=== PATIENT | male | born 1965 | race Caucasian/White ===

== ENCOUNTER 2024-01-24 10:32 | Inpatient (IN) | payer BC, SELFPAY ==
[2024-01-24] VITALS (18 sets, daily range): BP systolic 103–180; BP diastolic 74–112; BMI 33.0
[2024-01-24] MEDS: LOW STRENGTH ASPIRIN 324 MG PO (09:01)
[2024-01-24] MEDS: NITROSTAT (SUBLINGUAL) 0.400000000000000022 MG SL (09:01)
[2024-01-24] MEDS: BRILINTA 180 MG PO (09:03)
--- NOTE | 2024-01-24 09:03 | ED TECH ---
A STEMI ALERT was called #[id number] # Per @09:03 AM.
--- NOTE | 2024-01-24 09:04 | ED.GENMED ---
History of Present Illness
General
Chief Complaint: Chest Pain
Source: patient
Exam Limitations: none
Time Seen by Provider: 01/24/24 08:33
Nursing documentation reviewed up to this point in time: agreed with
Travel History
Have you had any contact with someone who has COVID-19?: No
Do you have any symptoms of coronavirus? Fever > 100 degrees, chills, cough, shortness of breath, sore throat, loss of taste or smell, muscle aches, or headache?: No
History of Present Illness
History of Present Illness:
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 Patient reports that he has had intermittent symptoms for the past week or so. He says he has been
having episodes of pain in the interscapular region that radiate towards the right shoulder; he says that he thought symptoms could be musculoskeletal and so he has been taking 3 Motrin to treat the symptoms and he says that they go away after about
an hour or so. Today he woke up with pain in the same area at this time radiating towards the jaw and the left shoulder. He took Motrin but symptoms did not go away (although they did improve slightly) and for this reason came to the emergency
room for assessment. He denies any exertional component to his symptoms. He denies any shortness of breath but did have some palpitations with the symptoms. He says some mild diaphoresis. No nausea or vomiting. He says he has seen cardiology in
the past Dr. Trimble but has no known history of heart issues. He is a former smoker quit 6 years ago.
Past History
Past History
ED Past Medical History: None
ED Past Surgical History: Cholecystectomy (Bilateral knee implants), Orthopedic, Tonsilectomy and Other (Right upper lobectomy for cancer 2016, skin cancer removal left posterior shoulder 2018)
Social History
Tobacco: Former smoker ([id number] yrs)
Personal:
Living: with family
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
Review of Systems
Review of Systems
All Other Systems: ROS reviewed and negative except as documented in HPI and ROS
Constitutional: Denies fever or chills
EENT: Denies sore throat or runny nose
Respiratory: Denies cough or trouble breathing
Cardiac: Reports chest pain and diaphoresis; Denies palpitations or syncope
ABD/GI: Denies abdominal pain, nausea or vomiting
: Denies flank pain
Musculoskeletal: Reports back pain; Denies neck pain
Neurological: Denies dizzy, headache, weakness or numbness
Phy Exam
Physical Exam
Physical Exam:
General: Awake, alert, oriented x3; no acute distress
Head: Normocephalic, atraumatic
Eyes: Conjunctiva normal, sclera anicteric
Throat: Airway intact, handling secretions
Neck: Trachea midline, supple without meningismus
Lungs: Clear to auscultation bilaterally, no wheezing, rales, rhonchi
Heart: Regular rate and rhythm, no murmurs, gallops, or rubs
Abd: Soft, non distended, nontender
Neuro: Cranial nerves grossly intact, speech fluid
Skin: no rash
Extremities: No edema in extremities, equal pulses in all extremities
Scores
Heart Failure Risk
Heart Failure Risk Score: Not Applicable
Heart Score for Chest Pain Patients
STEMI patient?: Yes
Withdrawal Assessment of Alcohol
Withdrawal Assessment Completed?: Not applicable
Course
Orders/Labs/Results
Orders:
Orders
01/24/24 08:29
Electrocardiogram (*1) Urgent
Reason for Study: Chest Pain
EKG- Treatment ONCE
01/24/24 08:36
Electrocardiogram (*1) Urgent
Reason for Study: Chest Pain
EKG- Treatment ONCE
01/24/24 08:52
Aspirin Chewable [Low Strength Aspirin] 324 mg PO NOW STA
Nitroglycerin 100 mg/250 ml [Nitroglycerin Premix] 100 mg in 250 ml IV NOW
Initial dose in mcg/min, then titrate:: 100
Titrate to keep:: Other
Titrate to keep other:: SBP less than 140 mmHg
Titrate by mcg/min:: 20 mcg/min
Frequency of titrations (minutes):: every 1 minute (after initial bolus)
Additional Titration Instructions:: Bolus 400 mcg/min x 2 min. Decrease to 100 mcg/min & titrate
Maximum dose in mcg/min:: 200
Begin to taper infusion when:: Remained at goal for 2hrs
Taper by mcg/min:: 5 mcg/min
Frequency of taper (minutes) if patient maintains goal:: 30
Taper to off?: Yes
If infusion off & no longer maintaining goal:: Contact Provider
Nitroglycerin Sublingual [Nitrostat (Sublingual)] 0.4 mg SL NOW STA
01/24/24 08:55
Consult Cardiology [CARDIOLOGY CONSULT] Urgent
Consulting Provider: Nakia Hardwick
Was physician already notified: Yes
01/24/24 08:57
Complete Blood Count/With Diff Urgent
Comprehensive Metabolic Panel Urgent
D-Dimer Urgent
Lipase Urgent
Magnesium Urgent
PTT Urgent
Comment: Obtain baseline before beginning heparin infusion if not already collected
Troponin I Urgent
01/24/24 09:02
Heparin 5,000 units IV NOW STA
Nursing to Place Non Medication Order As Directed
Physician Order: PTT 6 hours after initial start of Heparin infusion
Above order entered?: Yes
01/24/24 09:03
Ticagrelor [Brilinta] 180 mg PO ONCE ONE
01/24/24 09:17
Heparin 1000 Units/500 ml [Heparin] 1,000 units in 500 ml .ROUTE .STK-MED
Heparin Sodium,Porcine/Ns/Pf [Heparin 2000 Units/1000 ml] 2,000 unit in 1,000 ml .ROUTE .STK-MED
Lidocaine HCl/Pf [Xylocaine-Mpf 1% Vial] 50 mg .ROUTE .STK-MED ONE
Nitroglycerin [Tridil] 1,500 mcg .ROUTE .STK-MED ONE
Verapamil Injectable [Isoptin/Verapamil Injection] 5 mg .ROUTE .STK-MED ONE
01/24/24 09:20
Ticagrelor [Brilinta] 180 mg .ROUTE .STK-MED ONE
01/24/24 09:21
Fentanyl Citrate/Pf [Sublimaze] 100 mcg .ROUTE .STK-MED ONE
Heparin 10,000 units .ROUTE .STK-MED ONE
Midazolam HCl [Versed] 2 mg .ROUTE .STK-MED ONE
01/24/24 09:46
Heparin 1000 Units/500 ml [Heparin] 1,000 units in 500 ml .ROUTE .STK-MED
01/24/24 Lunch
Cholesterol Lowering
At Your Request: Full Participation
Cholesterol Lowering: Sodium, 2 Gram
[address] Request to [address] See Dose Instructions IV DIRECTED
01/24/24 10:05
Phenylephrine HCl/0.9% NaCl [Song-Synephrine] 1,000 mcg .ROUTE .STK-MED ONE
01/24/24 10:24
Admit Patient As Directed
Co-Sign Provider:
Level of Care: Inpatient admission
Assign to:: IVU
Physician / Group: dca
Diagnosis: STEMI
Reason for Hospitalization: STEMI
Expected length of stay greater than two midnights?: Yes
ELOS- Estimated Length of Stay in days: 2
I certify the patient meets the requirements for IP care: Yes
Electrocardiogram (*1) Urgent
Reason for Study: Other
Other Reason for Exam: s/p intervention
Comment: dca
Code Status As Directed
Resuscitation Status: Full Code
CARDIAC REHAB CONSULT Routine
Co-Sign Provider:
Type of Cardiac Rehab Referral: Outpatient
Diagnosis: STEMI
Date of Diagnosis/Surgery: 01/24/24
Referring Provider: Nakia Hardwick
Acetaminophen [Tylenol] 650 mg PO Q4HPRN PRN
Activity As Directed
Activity Level: Out of Bed- Chair
Comment: bed/chair rest for 2 hours then out of bed ad yoly
Ichthyologist Procedure As Directed
Cardiac Cath Procedure: percutaneous coronary intervention
Intake/ Output As Directed
Frequency: Per unit guidelines
Notify MD As Directed
Notify physician if: immediately for chest pain or bleeding from access site(s)
Radial Artery Hemostasis Method As Directed
Instructions:: 3 mL out at 2 hour posts placement of band
3 mL out at 2 1/2 hours post placement of band
3 mL out at 3 hours post placement of band
Off at 3 1/2 hours post placement of band
If any oozing or hemotoma occurs:: re-inflate band and call provider
Site Checks As Directed
Check access site for bleeding/hematoma: Yes
Comment: on arrival, Q15min x4, Q30min x2, Q1 hr x2, Q2 hr x2, Q4 hr or per
protocol
Vascular Checks As Directed
Location: distal to access site - pulse check
Frequency: Other
Comment: on arrival, Q15min x4, Q30min x2, Q1 hr x2, Q2 hr x2, Q4 hr or per protocol
Vital Signs As Directed
Frequency: Other
Additional Instructions:: on arrival, Q15min x4, Q30min x2, Q1 hr x2, Q2 hr x2, then Q4 hr or per unit
protocol
01/24/24 10:25
DX Deep Vein Thrombosis Video Routine
01/24/24 10:27
Case Management Consult ONCE
Case Management Consult: Discharge Planning
Comment: cost arabellailinta
01/24/24 10:30
0.9% Sodium Chloride 1000 ml [Nss] 1,000 ml IV PER PROTOCOL
Infusion rate in mL/kg/hr:: 1.5
Infusion rate in mL/hr:: 152
Duration of infusion (hours):: 5
01/24/24 16:00
Troponin I Q8H
01/24/24 18:00
Atorvastatin [Lipitor] 80 mg PO QPM
Enoxaparin Sodium [Lovenox] 40 mg SC QPM
01/24/24 20:00
Ticagrelor [Brilinta] 90 mg PO BID
01/25/24 00:00
Troponin I Q8H
01/25/24 06:00
Echo 2D MMode Color/Doppler Routine
Reason for Study: STEMI
Comment: dca
Electrocardiogram (*1) IN AM
Reason for Study: Other
Other Reason for Exam: s/p intervention
Comment: dca
Basic Metabolic Panel IN AM
Cardiovascular Evaluation IN AM
Complete Blood Count/No Diff IN AM
01/25/24 08:00
Troponin I Q8H
Aspirin Chewable [Low Strength Aspirin] 81 mg PO DAILY
Metoprolol Xl [Toprol Xl] 25 mg PO DAILY
Pantoprazole [Protonix] 40 mg PO DAILY
01/26/24 06:00
Basic Metabolic Panel IN AM
Complete Blood Count/No Diff IN AM
01/27/24 06:00
Basic Metabolic Panel IN AM
Complete Blood Count/No Diff IN AM
Abnormal Lab Results
01/24/24 01/24/24 01/24/24
08:57 09:27 09:34
Abs Immat Gran (auto) 0.1 H 10^3/uL
(0-0.05)
Immature Gran % 0.6 H %
(0-0.5)
D-Dimer 0.58 H ug/mlFEU
(0.00-0.50)
Glucose 120 H mg/dl
(70-99)
Alkaline Phosphatase 141 H U/L
(38-126)
Troponin I 0.260 H* ng/ml
POC ACT Low Range 231 H Seconds 279 H Seconds
(116-155) (116-155)
01/24/24
10:00
Abs Immat Gran (auto)
Immature Gran %
D-Dimer
Glucose
Alkaline Phosphatase
Troponin I
POC ACT Low Range 265 H Seconds
(116-155)
01/24/24 08:57
01/24/24 08:57
Vital Signs
Initial and Last Documented VS:
Initial Vital Signs
Temp Pulse Resp BP Pulse Ox
36.4 C 78 18 180/112 99
01/24/24 08:25 01/24/24 08:25 01/24/24 08:25 01/24/24 08:25 01/24/24 08:25
Last Documented Vital Signs
Temp Pulse Resp BP Pulse Ox
36.6 C 70 18 103/80 99
01/24/24 10:45 01/24/24 11:30 01/24/24 10:45 01/24/24 11:30 01/24/24 11:30
MDM/Problems Addressed
Differential Diagnosis Includes:
ACS, PE, dissection, pneumothorax
MDM/Problems Addressed:
58-year-old male presents for evaluation of intermittent and nonexertional chest pain over the past few days more consistent and severe this morning radiating to the jaw on the left shoulder. The rash was hypertensive but with otherwise normal
vitals. Exam as above. His initial EKG was concerning for inferior STEMI but significant baseline wander in the inferior leads and so repeat EKG was done and again concerning for STEMI. Initially discussed with interventional cardiology who
initially recommended no STEMI alert but after further review of case and EKG and bedside evaluation, STEMI alert activated will take patient to the Ichthyologist. Will treat with aspirin, nitroglycerin, Brilinta, heparin bolus. IV placed usual labs
sent off.
Chronic conditions affecting care:
Former smoker�increases cardiac risk
Acute Exacerbation and/or Progression of Chronic Illness:
Acutely hypertensive treated with nitroglycerin
Acute Exacerbation and/or Progression of Chronic Illness: HTN
*Pulse Oximetry
Patient hypoxic: no
*EKG
Interpreted by ED Provider?: Yes
Heart Rate: 75
Rate: normal
Rhythm: sinus
Friendly: left axis deviation
Interval: normal interval
QRS Pattern: normal QRS
Ischemia: ST elevation (Inferior leads, new)
*Critical Care Note
Total Time (30-74mins, 75-104mins- exclusive of procedures): 30
comment:
Critical care statement: A total of 30 minutes of critical care time was provided for this patient. This includes management of unstable vital signs, evaluation of the patient at bedside, frequent reassessment, discussion with
consultants/hospitalist, and review of pertinent medical records. This time was separate from time utilized to perform any aforementioned documented procedures
Data Reviewed
Review of Other/Old Records Reveals: Labs, Records and Other (EKGs)
Source: patient and records
Patient Management
Discussion with other providers: Restaurant Cook (Discussed with lock expert)
Escalation/DeEscalation of care consider admission/obs:
Admission indicated�Ichthyologist
ED Attending Note
-
Portions of this chart may have been created with voice recognition software.� Occasional wrong word or��sound alike� substitutions may have occurred due to the inherent limitations of voice recognition software.
Discharge Plan
Departure
Patient Disposition: FREIGHT AGENT
Date of Disposition: 01/24/24
Time of Disposition: 09:03
Admit to doctor: Ronen
Presentation/result/management discussed w/ accepting MD/DO: cardiology
Discharge Problem:
ST elevation (STEMI) myocardial infarction
Interventions
Interventions:
*Risk Screen - Suicide Last Done: 01/24/24 11:59
*General Assessment Last Done: 01/24/24 08:28
*Neglect/Abuse Screening Last Done: 01/24/24 08:28
*Nursing Disposition Last Done: 01/24/24 09:13
Discharge Date and Time
Discharge Date/Time: 01/24/24 09:13
[2024-01-24] MEDS: HEPARIN 5000 UNITS IV (09:05)
--- NOTE | 2024-01-24 09:10 | EDRN ---
Chest pain post NTG was1/10.
[2024-01-24 09:11] LABS: % Basophils 0.8 % (0-2); % Eosinophils 1.8 % (0-6); % Immature Granulocytes 0.6 % (0-0.5); % Lymphocytes 38.2 % (20.5-51.1); % Monocytes 6.4 % (1.7-9.3); % Neutrophils 52.2 % (42.2-75.2); Absolute Basophils 0.1 10^3/uL (0-0.2); Absolute Eosinophils 0.1 10^3/uL (0-0.7); Absolute Immature Granulocytes 0.1 10^3/uL (0-0.05); Absolute Monocytes 0.5 10^3/uL (0.1-0.6); Absolute Neutrophils 4.1 10^3/uL (1.4-6.5); Hematocrit 43.7 % (39.0-52.0); Hemoglobin 15.1 g/dL (13.0-18.0); Mean Corp Hgb Conc. 34.6 g/dL (33.0-37.0); Mean Corpuscular Hgb 29.7 pg (27.0-31.0); Mean Corpuscular Volume 85.9 fL (80.0-94.0); Mean Platelet Volume 8.8 fL (7.4-10.4); Nucleated Red Blood Cells % 0 % (-); Platelet Count 334 10^3/uL (130-400); Red Blood Cell Count 5.09 10^6/uL (4.70-6.10); Red Cell Dist. Width 12.8 % (11.5-14.5); White Blood Cell Count 7.9 10^3/uL (4.8-10.8)
--- NOTE | 2024-01-24 09:13 | EDRN ---
Pt to oil laboratory analyst w/ Jennifer FARIAS and Jessenia FARIAS and Museum Curator search engine optimization specialist.
[2024-01-24 09:19] LABS: APTT 28.2 Sec (23.4-35.0)
[2024-01-24 09:21] LABS: ALT (SGPT) 28 U/L (0-50); AST (SGOT) 24 U/L (17-59); Albumin 4.6 g/dl (3.5-5.0); Alkaline Phosphatase 141 U/L (38-126); Blood Urea Nitrogen 13 mg/dl (9-20); Calcium 9.5 mg/dl (8.4-10.2); Carbon Dioxide 27 mmol/L (22-30); Chloride 105 mmol/L (98-107); Estimated Creatinine Clearance 93 ml/min; Glucose 120 mg/dl (70-99); Lipase 83 U/L (23-300); Magnesium 2.3 mg/dl (1.6-2.3); Sodium 138 mmol/L (135-145); Total Bilirubin 0.6 mg/dl (0.2-1.3); Total Protein 7.4 g/dl (6.3-8.2); eGFR > 60.00
[2024-01-24 09:22] LABS: D-Dimer 0.58 ug/mlFEU (0.00-0.50)
[2024-01-24 09:32] LABS: ACT-LR - POC 231 Seconds (116-155)
[2024-01-24 09:40] LABS: ACT-LR - POC 279 Seconds (116-155)
[2024-01-24 10:08] LABS: ACT-LR - POC 265 Seconds (116-155)
--- NOTE | 2024-01-24 10:13 | HPS.HSE ---
Family Physician
-
Family Physician: Jakob Bedoya MD
Chief Complaint
-
Chest pain, Inferior STEMI
History of Present Illness
58-year-old male with past medical history lung cancer RUL partial lobectomy, diverticulosis who has been having intermittent chest pain since 01/11 which radiated to R shoulder and has been treating with Motrin. He was awoken at 3am with worsening
chest pain radiating to jaw and left shoulder and presented to ER. EKG with ST elevations inferiorly. He was given heparin, ASA, Brilinta and brought urgently to chemical lab supervisor. He is a former smoker quit 6 years ago.
Medical History
Past Medical History
Past Medical History: Reports Cancer (Lung and Skin)
Past Surgical History: Reports Orthopedic (TKR b/l) and Other (RUL partial lobectomy 2015, carcenoma removed from back 2018)
Social History
Tobacco: Former Smoker (1ppd x 30yrs)
Employment: Employed
Family History
Family History: Cancer
Allergies / Home Medications
Allergies reflects when Allergies were last updated in [employer].
Home Medications with original date entered in [employer]
Allergy/Medication List:
Allergies
Allergy/AdvReac Type Severity Reaction Status Date / Time
erythromycin base Allergy vomiting Verified 01/24/24 08:25
latex Allergy Unknown Verified 01/24/24 09:28
Medication Instructions Recorded Confirmed Type
omeprazole 20 mg capsule,delayed 20 mg PO DAILY 01/24/24 01/24/24 History
release
Review of Systems
-
Cardiac: Reports Chest Pain (01/20 chest pain)
Physical Exam
Vital Signs
Vital Signs
Temp Pulse Resp BP Pulse Ox
97.5 F 85 16 138/96 97
01/24/24 08:25 01/24/24 09:07 01/24/24 09:07 01/24/24 09:07 01/24/24 09:07
Physical Exam
General: Pain (deferred as being prepped and draped on chemical lab supervisor table for urgent procedure)
Laboratory Results
-
01/24/24 08:57
01/24/24 08:57
Laboratory Results
APTT 28.2 Sec (23.4-35.0) 01/24/24 08:57
Total Bilirubin 0.6 mg/dl (0.2-1.3) 01/24/24 08:57
AST 24 U/L (17-59) 01/24/24 08:57
ALT 28 U/L (0-50) 01/24/24 08:57
Alkaline Phosphatase 141 U/L (38-126) H 01/24/24 08:57
Troponin I 0.260 ng/ml H* 01/24/24 08:57
Lipase 83 U/L (23-300) 01/24/24 08:57
Data Reviewed
-
Medical Tests (Nuc Med, Echo, EKG etc): Report Reviewed by me
Impression/Plan
-
IMPRESSION:
late presentation inferior STEMI
Lung cancer post RUL partial lobectomy 2015
skin cancer excision 2017
GERD
Diverticulosis
Arthritis prior b/l TKR
former smoker
PLAN:
Admit IVU post cath
serial troponin to peak
Echo today
DAPT ASA/Brilinta
initiate low dose BB
PPI for now, may not require as GERD could be from CAD
cardiac rehab c/s
f/u DCA at d/c
continue to monitor on tele 48 hours
[2024-01-24] MEDS: NSS 1000 IV (11:05)
--- NOTE | 2024-01-24 12:35 | PTCARENOTE ---
Assumed care of pt upon transfer from [facility] post Stenting to RCA. Pt arrives awake and alert, Ox3. VSS, CM shows NSR 70's, POX 99%. Pt c/o pain 2/10 through chest since he arrived, has not increased, Dr. Hardwick aware. Right radial band intact with
normal CMS. at bedside updated.
--- NOTE | 2024-01-24 13:18 | CM ---
Addendum entered by Leslie Banda RN 01/24/24 14:00:
Patient is agreeable to the cost
Original Note:
Pricing on Brilinta 90 mg BID through the patient's [employer] [facility] is $285.61 for 30 days. The patient has a $2500 deductible. The patient does qualify for the copay card, so he will be responsible for $85.61 until he meets his deductible then it will
$5 a month. I will review pricing with the patient.
--- NOTE | 2024-01-24 14:01 | CM ---
Chart reviewed. Patient is independent of ADLS, lives with his in a 2 [address], 2 RUIZ, 0 DME. Plan is for the patient to return home. CM to follow
--- NOTE | 2024-01-24 14:51 | ITS.CL.CATH ---
Station Engineer Chief - Catheterization
Cardiac Catheterization
Procedure Report:
LEFT HEART CATHETERIZATION AND CORONARY INTERNVENTION
Date of Procedure: January 24, 2024
Referring: [facility]
PROCEDURES:
1. Left catheterization, coronary angiogram.
2. Ultrasound-guided access.
3. Successful percutaneous coronary artery intervention to 100% occluded distal RCA (LIBBY 0 flow, lesion type C) with a 3.0 x 15 mm Xience ina point drug-eluting stent, successfully postdilated using a 3.5 x 12 mm NC balloon at 18 katarina with an
excellent angiographic result and taoist of LIBBY-3 flow.
INDICATION: Patient is a 58-year-old gentleman with past medical history of lung cancer status post right upper lobectomy about 6 years ago, former smoker, quit 6 years ago with no known cardiac risk factors (however has not had a annual physical in
more than 2 years) who presents with stuttering chest pressure starting January 11, at times exertional, other times at rest with recurrent episode again overnight waking him up from sleep prompting him to come to the emergency department
with initial EKG is concerning for inferior ST elevation TN with Q waves that have been present since at least 2021 (ST changes were new) and thus he was emergently brought up to the heart catheterization lab after detailed informed consent. He
received 325 mg of aspirin and route along with 1 sublingual nitroglycerin with chest discomfort still persistent at 3 out of 10. He received 5000 units of unfractionated heparin along with 180 mg of Brilinta in the emergency department prior to
coming up to the heart catheterization lab.
ACCESS: Right radial artery, 6 Filipino sheath, under ultrasound guidance
HEMODYNAMICS : (mmHg)
AO (s/d) : 104/68
LV (s/d) : 97/13
LVEDP : 24
CORONARY FINDINGS
DOMINANCE: Right
LEFT MAIN: The left main artery is a large-caliber vessel which gives rise to the left anterior descending artery and the left circumflex artery. There is 10 to 20% ostial left main stenosis. Otherwise there is minimal luminal irregularities.
LEFT ANTERIOR DESCENDING: The left into descending artery is a large-caliber vessel which gives rise to 2 major diagonal branches as it courses through the anterior interventricular groove and wraps around the apex. There is 40 to 50% diffuse
atherosclerotic plaque in the mid LAD. [id number] collaterals are also noted.
CIRCUMFLEX: The left circumflex artery is a medium caliber vessel which gives rise to 2 major obtuse marginal branch which are medium in caliber. There is minimal luminal irregularities.
RIGHT CORONARY ARTERY: The right coronary artery is a large-caliber, dominant vessel with 100% distal RCA occlusion and LIBBY 0 flow. Left to right collaterals were noted.
CORONARY INTERVENTION: The right coronary artery was selectively engaged using a 6 Filipino JR4 guide catheter. Additional heparin was given to maintain a therapeutic ACT throughout the case. Initially attempt was made to advance a 190 cm 0.014' BMW
wire however this kept buckling at the distal RCA stenosis despite multiple attempts. At this point a 300 cm chief pilot 50 wire was introduced through a 0.014' quick cross microcatheter and after multiple passes we successfully were able to cross the
distal RCA 100% thrombotic occlusion into the right PDA. We confirmed that we were intraluminal by shooting dye through the microcatheter after retracting the chief pilot 50 wire. Once we confirmed that we were intraluminal through the microcatheter, a
300 cm 0.014' BMW wire was introduced and parked into the RPDA and the microcatheter was taken out. Through this we predilated the distal RCA stenosis using a 2.5 x 12 mm trek semicompliant balloon with excellent expansion. The lesion was
subsequently stented using a 3.0 x 15 mm Xience ina point drug-eluting stent and postdilated using a 3.5 x 12 mm NC trek balloon at 18 katarina with an excellent angiographic result. LIBBY-3 flow was restored. No acute complications.
SEDATION: 56 minutes of procedural sedation was utilized. An independent medical cost consultant was present to assist with and help manage the patient's level of consciousness and physiologic status.
RADIATION SUMMARY: Fluoro Time (min): 9.2, Dose (mGy): 1571.7, DAP (Gy.cm2) : 115.5
Closure Device: Vascular band over right radial artery, 11 cc of air.
CONCLUSIONS
1. Successful percutaneous coronary artery intervention to 100% occluded distal RCA (LIBBY 0 flow, lesion type C) with a 3.0 x 15 mm Xience ina point drug-eluting stent, successfully postdilated using a 3.5 x 12 mm NC balloon at 18 katarina with an
excellent angiographic result and taoist of LIBBY-3 flow.
2. Elevated LVEDP.
RECOMMENDATIONS
1. Wean radial band per protocol.
2. Uninterrupted dual antiplatelet therapy with daily baby aspirin and Brilinta 90 mg twice daily along with high intensity statin and beta-domonique as tolerated.
3. Full echocardiogram to assess left ventricular systolic function and rule out any significant valvular abnormalities.
4. Aggressive management of cardiovascular risk factors.
5. Eventual referral for outpatient cardiac rehab.
Nakia Hardwick MD, FACC, [facility]
[2024-01-24] MEDS: LOVENOX 40 MG SC (17:29)
[2024-01-24] MEDS: LIPITOR 80 MG PO (17:29)
[2024-01-24] MEDS: BRILINTA 90 MG PO (20:23)
[2024-01-24] MEDS: TYLENOL 650 MG PO (20:29)
[2024-01-25] VITALS (7 sets, daily range): BP systolic 126–146; BP diastolic 84–97
--- NOTE | 2024-01-25 02:21 | PTCARENOTE ---
Pt. remains NSR on the monitor, VSS. Right radial cath site CDI with no S&S hematoma, radial pulse palpable. Pt. complaining of mild pain at cath site and mild right chest discomfort (level 1-2 out of 10), pt. states much improved compared to
pre-procedure. Pt. sleeping.
[2024-01-25 04:55] LABS: Hematocrit 40.4 % (39.0-52.0); Hemoglobin 13.8 g/dL (13.0-18.0); Mean Corp Hgb Conc. 34.2 g/dL (33.0-37.0); Mean Corpuscular Hgb 28.9 pg (27.0-31.0); Mean Corpuscular Volume 84.5 fL (80.0-94.0); Platelet Count 307 10^3/uL (130-400); Red Blood Cell Count 4.78 10^6/uL (4.70-6.10); Red Cell Dist. Width 13.1 % (11.5-14.5); White Blood Cell Count 8.6 10^3/uL (4.8-10.8)
[2024-01-25 05:20] LABS: Blood Urea Nitrogen 13 mg/dl (9-20); Calcium 9.2 mg/dl (8.4-10.2); Carbon Dioxide 24 mmol/L (22-30); Chloride 107 mmol/L (98-107); Estimated Creatinine Clearance 93 ml/min; Glucose 110 mg/dl (70-99); HDL Cholesterol 28 mg/dl; Potassium 4.3 mmol/L (3.5-5.1); Sodium 137 mmol/L (135-145); Total Cholesterol 209 mg/dl (50-199); eGFR > 60.00
[2024-01-25 05:39] LABS: Triglyceride 699 mg/dl (10-149)
[2024-01-25 06:05] LABS: LDL Cholesterol, Direct 108 mg/dl
[2024-01-25] MEDS: LOW STRENGTH ASPIRIN 81 MG PO (09:00)
[2024-01-25] MEDS: BRILINTA 90 MG PO ×2 (09:00→19:58)
[2024-01-25] MEDS: PROTONIX 40 MG PO (09:01)
[2024-01-25] MEDS: TOPROL XL 25 MG PO (09:01)
[2024-01-25] MEDS: TYLENOL 650 MG PO (09:02)
[2024-01-25] MEDS: FLUSH (NSS) 2 FLUSH IV (09:02)
--- NOTE | 2024-01-25 09:20 | W.PN.CARDCBS ---
Addendum entered and electronically signed by Nakia Hardwick MD 01/25/24 11:20:
I saw and examined the patient.
The Branch Retail Executive's note was reviewed and I agree with the note.
Comment: Overall patient is doing well and does not offer any significant complaints. He tells me that his shortness of breath and chest discomfort have resolved. He has ambulated within his room going to the bathroom without any symptoms.
No major events noted on telemetry. Vital signs and lab work reviewed. Patient is a well-appearing gentleman in no acute distress, normal S1 and S2, no murmurs, rubs or gallops, lungs are clear to auscultation bilaterally, right radial arterial
access site with dressing in place which is clean, dry and intact without evidence of hematoma or bruit. Warm extremities without significant edema.
Recommendations:
1. Plan for echocardiogram today to assess overall left ventricular systolic function in the setting of an inferior ST elevation GA.
2. Uninterrupted dual antiplatelet therapy with daily baby aspirin and Brilinta along with high intensity statin and beta-domonique as tolerated.
3. Continue to monitor on telemetry for the next 24 hours with tentative discharge plan for tomorrow if no new changes.
4. Referral for outpatient cardiac rehab.
Nakia Hardwick MD, [facility], [facility]
Original Note:
Today's Communication / Plan
-
continue post GA care
DAPT
Echo today
Impression / Plan
-
PCP: Brent Bedoya MD
IMPRESSION:
late presentation inferior STEMI
Lung cancer post RUL partial lobectomy 2015
skin cancer excision 2018
GERD
Diverticulosis
Arthritis prior b/l TKR
former smoker
PLAN:
post PCI distally occluded RCA x1 JM
Rad site stable, tele no ectopy, no further chest/back pain
LVEDP elevated but denies sob, lungs clear on CXR, hold off on diuresis
Troponin peaked at 10.4, trending down
Echo today
DAPT ASA/Brilinta
initiate low dose BB this am, will add ACEi/ARB after Echo
Mixed hyperlipidemia/hypertriglyceridemia - LDL 108, TG 699, will need repeat labs on Atorvastatin 80mg in 6-8 weeks
PPI for now, may not require as GERD could be from CAD
cardiac rehab c/s
f/u DCA at d/c
continue to monitor on tele
oob ambulate
01/24/24 PROCEDURES:
1.� Left catheterization, coronary angiogram.
2.� Ultrasound-guided access.
3.� Successful percutaneous coronary artery intervention to 100% occluded distal RCA (LIBBY 0 flow, lesion type C) with a 3.0 x 15 mm Xience ina point drug-eluting stent, successfully postdilated using a 3.5 x 12 mm NC balloon at 18 katarina with an
excellent angiographic result and episcopal of LIBBY-3 flow.
�
58-year-old gentleman with past medical history of lung cancer status post right upper lobectomy about 6 years ago, former smoker, quit 6 years ago with no known cardiac risk factors (however has not had a annual physical in more than 2 years) who
presents with stuttering chest pressure starting January 11, episodic, at times exertional, other times at rest with recurrent episode again overnight waking him up from sleep prompting him to come to the emergency department with initial EKG is
concerning for inferior ST elevation GA with Q waves that have been present since at least 2021 (ST changes were new) and thus he was emergently brought up to the heart catheterization lab after detailed informed consent.� He received 325 mg of
aspirin and route along with 1 sublingual nitroglycerin with chest discomfort still persistent at 3 out of 10.� He received 5000 units of unfractionated heparin along with 180 mg of Brilinta in the emergency department prior to coming up to the
heart catheterization lab.
Progress Note - Lead Cook
Subjective
Date of Service: January 25, 2024
no cp, sob
Objective
Labs:
01/25/24 04:26
01/25/24 04:26
Labs
Hgb 13.8 g/dL (13.0-18.0) 01/25/24 04:26
Hct 40.4 % (39.0-52.0) 01/25/24 04:26
Plt Count 307 10^3/uL (130-400) 01/25/24 04:26
APTT 28.2 Sec (23.4-35.0) 01/24/24 08:57
Sodium 137 mmol/L (135-145) 01/25/24 04:26
Potassium 4.3 mmol/L (3.5-5.1) 01/25/24 04:26
BUN 13 mg/dl (9-20) 01/25/24 04:26
Creatinine 1.0 mg/dL (0.7-1.3) 01/25/24 04:26
Glucose 110 mg/dl (70-99) H 01/25/24 04:26
Troponins
01/24/24 01/24/24 01/24/24
08:57 16:50 23:00
Troponin I 0.260 H* 10.400 H* D Cancelled
01/25/24 01/25/24
00:09 08:00
Troponin I 7.500 H* D Cancelled
Vital Signs and I&O:
Vital Signs
Temp Pulse Resp BP Pulse Ox
98.4 F 80 20 137/88 96
01/25/24 07:38 01/25/24 08:00 01/25/24 07:38 01/25/24 07:39 01/25/24 07:38
Vital Signs
Temp Pulse Resp BP Pulse Ox
98.4 F 80 20 137/88 96
01/25/24 07:38 01/25/24 08:00 01/25/24 07:38 01/25/24 07:39 01/25/24 07:38
Intake & Output
01/23/24 01/24/24 01/25/2401/25/24
06:59 06:59 06:59 06:59
Intake Total 575 / 575
Balance 575 / 575
Physical Exam
Physical Exam
NAD, AOX3
S1, s2, RRR
CTAB< non labored
SNTND Bsx4
R rad site c/d/i no HT, good pulse, mildly tender
--- NOTE | 2024-01-25 10:44 | PTCARENOTE ---
Received patient this morning resting in bed. Denies any chest pain or sob. Right wrist with dressing dry and intact, no signs of hematoma. Having some mild discomfort at radial site and medicated with PO tylenol with relief.
--- NOTE | 2024-01-25 11:46 | CM ---
Chart reviewed. Patient is independent of ADLS, lives alone in a 2 STH, 2 RUIZ, 0 DME. I confirmed with patient's [facility] and they have Brilinta in stock and filled. Patient currently with no needs. CM to follow.
[2024-01-25 13:16] LABS: Glycohemoglobin (HgbA1c) 6.4 % (4.0-5.6)
[2024-01-25] MEDS: LOVENOX 40 MG SC (17:49)
[2024-01-25] MEDS: LIPITOR 80 MG PO (17:49)
--- NOTE | 2024-01-25 21:14 | PTCARENOTE ---
Pt rec'd at change of shift sitting on side of bed surrounded by family. right radial site with DDI. sinus on telemetry. denies c/p or sob. ambulated in taylor without complaints.
[2024-01-26 04:28] VITALS: BP 145/106
[2024-01-26] MEDS: TOPROL XL 25 MG PO (04:47)
--- NOTE | 2024-01-26 05:22 | PTCARENOTE ---
Pt awoke stating he is feeling very anxious. 'I finally realized what just happened to me'. emotional support given. Pt's b/p high,am dose of Toprol given early.
[2024-01-26 05:26] LABS: Hematocrit 42.4 % (39.0-52.0); Hemoglobin 14.8 g/dL (13.0-18.0); Mean Corp Hgb Conc. 34.9 g/dL (33.0-37.0); Mean Corpuscular Volume 83.1 fL (80.0-94.0); Mean Platelet Volume 9.1 fL (7.4-10.4); Platelet Count 308 10^3/uL (130-400); Red Cell Dist. Width 12.9 % (11.5-14.5); White Blood Cell Count 7.9 10^3/uL (4.8-10.8)
[2024-01-26 05:47] LABS: Blood Urea Nitrogen 16 mg/dl (9-20); Calcium 9.6 mg/dl (8.4-10.2); Carbon Dioxide 23 mmol/L (22-30); Chloride 105 mmol/L (98-107); Estimated Creatinine Clearance 104 ml/min; Glucose 113 mg/dl (70-99); Potassium 4.2 mmol/L (3.5-5.1); Sodium 136 mmol/L (135-145); eGFR > 60.00
[2024-01-26 07:51] VITALS: BP 128/92
[2024-01-26] MEDS: PROTONIX 40 MG PO (08:15)
[2024-01-26] MEDS: LOW STRENGTH ASPIRIN 81 MG PO (08:15)
[2024-01-26] MEDS: BRILINTA 90 MG PO (08:15)
[2024-01-26] MEDS: FLUSH (NSS) 1 FLUSH IV (08:16)
--- NOTE | 2024-01-26 08:26 | W.PN.CARDCBS ---
Today's Communication / Plan
-
titrate post FL medications
stable for d/c home
Impression / Plan
-
PCP: Brent Bedoya MD
IMPRESSION:
late presentation inferior STEMI
Lung cancer post RUL partial lobectomy 2016
skin cancer excision 2017
GERD
Diverticulosis
Arthritis prior b/l TKR
former smoker
PLAN:
post PCI distally occluded RCA x1 JM
Rad site stable, tele no ectopy, no further chest/back pain
LVEDP elevated but denies sob, lungs clear on CXR, hold off on diuresis
Troponin peaked at 10.4, trending down
Echo EF 50%, inf HK, mild MR
DAPT ASA/Brilinta
titrate metoprolol xl to 25mg bid, will add lisinopril 2.5mg, check BMP in 2 weeks
Mixed hyperlipidemia/hypertriglyceridemia - LDL 108, TG 699, will need repeat labs on Atorvastatin 80mg in 6-8 weeks
A1c 6.4 - Pre DM, reviewed diet, eliminate soda/sugars, will f/u with PCP
PPI for now, may not require as GERD could be from CAD
cardiac rehab c/s
f/u DCA at d/c
home today
01/24/24 PROCEDURES:
1.� Left catheterization, coronary angiogram.
2.� Ultrasound-guided access.
3.� Successful percutaneous coronary artery intervention to 100% occluded distal RCA (LIBBY 0 flow, lesion type C) with a 3.0 x 15 mm Xience ina point drug-eluting stent, successfully postdilated using a 3.5 x 12 mm NC balloon at 18 katarina with an
excellent angiographic result and rastafarian of LIBBY-3 flow.
�
58-year-old gentleman with past medical history of lung cancer status post right upper lobectomy about 6 years ago, former smoker, quit 6 years ago with no known cardiac risk factors (however has not had a annual physical in more than 2 years) who
presents with stuttering chest pressure starting January 11, at times exertional, other times at rest with recurrent episode again overnight waking him up from sleep prompting him to come to the emergency department with initial EKG is
concerning for inferior ST elevation FL with Q waves that have been present since at least 2021 (ST changes were new) and thus he was emergently brought up to the heart catheterization lab after detailed informed consent.� He received 325 mg of
aspirin and route along with 1 sublingual nitroglycerin with chest discomfort still persistent at 3 out of 10.� He received 5000 units of unfractionated heparin along with 180 mg of Brilinta in the emergency department prior to coming up to the
heart catheterization lab.
Progress Note - Potato Seed Cutter
Subjective
Date of Service: January 26, 2024
no cp, sob
Objective
Labs:
01/26/24 04:45
01/26/24 04:45
Labs
Hgb 14.8 g/dL (13.0-18.0) 01/26/24 04:45
Hct 42.4 % (39.0-52.0) 01/26/24 04:45
Plt Count 308 10^3/uL (130-400) 01/26/24 04:45
APTT 28.2 Sec (23.4-35.0) 01/24/24 08:57
Sodium 136 mmol/L (135-145) 01/26/24 04:45
Potassium 4.2 mmol/L (3.5-5.1) 01/26/24 04:45
BUN 16 mg/dl (9-20) 01/26/24 04:45
Creatinine 0.9 mg/dL (0.7-1.3) 01/26/24 04:45
Glucose 113 mg/dl (70-99) H 01/26/24 04:45
Troponins
01/24/24 01/24/24 01/24/24
08:57 16:50 23:00
Troponin I 0.260 H* 10.400 H* D Cancelled
01/25/24 01/25/24
00:09 08:00
Troponin I 7.500 H* D Cancelled
Vital Signs and I&O:
Vital Signs
Temp Pulse Resp BP Pulse Ox
97.9 F 86 20 145/106 97
01/26/24 07:48 01/26/24 05:00 01/26/24 07:48 01/26/24 04:28 01/26/24 07:48
Vital Signs
Temp Pulse Resp BP Pulse Ox
97.9 F 86 20 145/106 97
01/26/24 07:48 01/26/24 05:00 01/26/24 07:48 01/26/24 04:28 01/26/24 07:48
Intake & Output
01/24/24 01/25/24 01/26/24 01/27/24
06:59 06:59 06:59 06:59
Intake Total 575 / 575 840 / 840
Balance 575 / 575 840 / 840
Physical Exam
Physical Exam
NAD< AOX3
S1, S2, RRR
CTAB< non labored, no wheeze
SNTND Bsx4
R rad site c/d/i no HT, good pulse
[2024-01-26] MEDS: ZESTRIL 2.5 MG PO (08:54)
--- NOTE | 2024-01-26 10:24 | W.DS.TRANS ---
DC Summary - Tourist Camp Attendant
-
Discharge Instructions:
Discharge Diagnosis/Procedures NSTEMI, Angioplasty with stent to RCA
Diet Low Cholesterol,Low Sodium,Diabetic, Carb
Controlled
Driving Restrictions As prior to admission
Blood Work Check BMP in 2 weeks
Other Services Cardiac Rehab
Instructions:
Stand-Alone Forms: DC Instructions- Cath/EP Lab
Changes to Home Medications: Yes
Discharge Medications:
DC Medications w/original date entered in [employer]
omeprazole 20 mg capsule,delayed release 20 mg PO DAILY Gastrointestinal Issue 01/24/24
aspirin 81 mg chewable tablet (Children's Aspirin) 81 mg PO DAILY #1 tab 01/25/24
atorvastatin 80 mg tablet 80 mg PO QPM #90 tabs 01/25/24
ticagrelor 90 mg tablet (Brilinta) 90 mg PO BID #180 tabs 01/25/24
lisinopril 2.5 mg tablet 2.5 mg PO DAILY #30 tabs 01/26/24
metoprolol succinate 25 mg tablet,extended release 24 hr 25 mg PO BID #60 tabs 01/26/24
Home Medication Changes
new to metoprolol, brilinta, atrovastatin, lisinopril
Pending Results: No
--- NOTE | 2024-01-26 10:38 | PTCARENOTE ---
Patient appears a little down this morning, upset about all his new medications and that his BP was elevated during the night. Seen by Wayne Maharaj NP and Dr. Jacobs, plan of care explained and seems in better spirits. Concerned that his family doctor
is not on staff here and requesting some records. Given agricultural labor camp manager and echo reports to take home. Patient waiting for his this morning so that we may go over discharge instructions together.
--- NOTE | 2024-01-26 11:33 | W.PN.CARDCBS ---
Today's Communication / Plan
-
Stable cardiology status for discharge to home
Impression / Plan
-
PCP: Brent Bedoya MD
IMPRESSION:
late presentation inferior STEMI/ post PCI distally occluded RCA x1 JM/peak troponin 10.4
Lung cancer post RUL partial lobectomy 2015
skin cancer excision 2017
GERD
Diverticulosis
Arthritis prior b/l TKR
former smoker
Echo 01/25/24: EF 50%, inf HK, mild MR
PLAN:
Stable cardiology status for discharge
Follow-up arranged
Urged to watch diet especially sweets with elevated triglycerides
He will enter cardiac rehab
Discussed with Food Service Hotel Runner PA as well
Continue aspirin and Brilinta. Has coverage for Brilinta
Will need repeat labs on Atorvastatin 80mg in 6-8 weeks
01/24/24 PROCEDURES:
1.� Left catheterization, coronary angiogram.
2.� Ultrasound-guided access.
3.� Successful percutaneous coronary artery intervention to 100% occluded distal RCA (LIBBY 0 flow, lesion type C) with a 3.0 x 15 mm Xience ina point drug-eluting stent, successfully postdilated using a 3.5 x 12 mm NC balloon at 18 katarina with an
excellent angiographic result and sabianism of LIBBY-3 flow.
�
58-year-old gentleman with past medical history of lung cancer status post right upper lobectomy about 6 years ago, former smoker, quit 6 years ago with no known cardiac risk factors (however has not had a annual physical in more than 2 years) who
presents with stuttering chest pressure starting January 11, episodic, at times exertional, other times at rest with recurrent episode again overnight waking him up from sleep prompting him to come to the emergency department with initial EKG is
concerning for inferior ST elevation MD with Q waves that have been present since at least 2021 (ST changes were new) and thus he was emergently brought up to the heart catheterization lab after detailed informed consent.� He received 325 mg of
aspirin and route along with 1 sublingual nitroglycerin with chest discomfort still persistent at 3 out of 10.� He received 5000 units of unfractionated heparin along with 180 mg of Brilinta in the emergency department prior to coming up to the
heart catheterization lab.
Progress Note - Airborne Weapons Technical Manager
Subjective
Date of Service: January 26, 2024
No complaints.
Objective
Labs:
01/26/24 04:45
01/26/24 04:45
Labs
Hgb 14.8 g/dL (13.0-18.0) 01/26/24 04:45
Hct 42.4 % (39.0-52.0) 01/26/24 04:45
Plt Count 308 10^3/uL (130-400) 01/26/24 04:45
APTT 28.2 Sec (23.4-35.0) 01/24/24 08:57
Sodium 136 mmol/L (135-145) 01/26/24 04:45
Potassium 4.2 mmol/L (3.5-5.1) 01/26/24 04:45
BUN 16 mg/dl (9-20) 01/26/24 04:45
Creatinine 0.9 mg/dL (0.7-1.3) 01/26/24 04:45
Glucose 113 mg/dl (70-99) H 01/26/24 04:45
Troponins
01/24/24 01/24/24 01/24/24
08:57 16:50 23:00
Troponin I 0.260 H* 10.400 H* D Cancelled
01/25/24 01/25/24
00:09 08:00
Troponin I 7.500 H* D Cancelled
Vital Signs and I&O:
Vital Signs
Temp Pulse Resp BP Pulse Ox
97.9 F 86 20 128/92 97
01/26/24 07:48 01/26/24 08:00 01/26/24 07:48 01/26/24 07:51 01/26/24 07:48
Vital Signs
Temp Pulse Resp BP Pulse Ox
97.9 F 86 20 128/92 97
01/26/24 07:48 01/26/24 08:00 01/26/24 07:48 01/26/24 07:51 01/26/24 07:48
Intake & Output
01/24/24 01/25/24 01/26/24 01/27/24
06:59 06:59 06:59 06:59
Intake Total 575 / 575 840 / 840 240 / 240
Balance 575 / 575 840 / 840 240 / 240
Physical Exam
Physical Exam
General: Well developed, well nourished in NAD.
--- NOTE | 2024-01-26 11:50 | PTCARENOTE ---
Reviewed discharge instructions with the patient and his including restrictions, new medications, follow up appointments and BMP needed in 2 weeks. Patient requested echo and vp lab reports to share with his primary who is not on staff here
and copies given as requested. Patient states his understanding of all instructions, discharged home with his .
== END 2024-01-26 12:15 | disposition home or self-care (01) | DRG 322 ==
LOC: IVU 10:32
PROVIDERS: Nurse Practitioner Adult Health; ADMITTING PHYSICIAN Internal Medicine Interventional Cardiology; EMERGENCY PHYSICIAN Emergency Medicine; FAMILY PHYSICIAN Internal Medicine
PROC: B2111ZZ Fluoroscopy of Multiple Coronary Arteries using Low Osmolar Contrast (ICD-10-PCS; 2024-01-24)
PROC: 027034Z Dilation of Coronary Artery, One Artery with Drug-eluting Intraluminal Device, Percutaneous Approach (ICD-10-PCS; 2024-01-24)
PROC: B2151ZZ Fluoroscopy of Left Heart using Low Osmolar Contrast (ICD-10-PCS; 2024-01-24)
PROC: 4A023N7 Measurement of Cardiac Sampling and Pressure, Left Heart, Percutaneous Approach (ICD-10-PCS; 2024-01-24)
DX: I21.3 ST elevation (STEMI) myocardial infarction of unspecified site (principal); Z87.891 Personal history of nicotine dependence; K21.9 Gastro-esophageal reflux disease without esophagitis; K57.90 Diverticulosis of intestine, part unspecified, without perforation or abscess without bleeding; Z85.118 Personal history of other malignant neoplasm of bronchus and lung; E78.2 Mixed hyperlipidemia
CPT/HCPCS: 76937; 80048; 80053; 80061; 83036; 83690; 83721; 83735; 84484; 85025; 85027; 85347; 85379; 85730; 93005; 93306; 93458; 96374; 96375; 99152; 99153; 99291; C1725; C1769; C1874; C1894; C9606; Q9967

== ENCOUNTER → 2024-02-09 09:06 | Outpatient (REF) | payer BC, SELFPAY ==
[2024-02-09 10:33] LABS: Blood Urea Nitrogen 16 mg/dl (9-20); Calcium 10.1 mg/dl (8.4-10.2); Carbon Dioxide 28 mmol/L (22-30); Chloride 99 mmol/L (98-107); Glucose 117 mg/dl (70-99); Magnesium 2.5 mg/dl (1.6-2.3); Potassium 4.7 mmol/L (3.5-5.1); Sodium 137 mmol/L (135-145); eGFR > 60.00
== END ==
LOC: REG 09:06
PROVIDERS: ATTENDING PHYSICIAN Nurse Practitioner Adult Health; FAMILY PHYSICIAN Internal Medicine; REFERRING PHYSICIAN Internal Medicine Interventional Cardiology
DX: R07.9 Chest pain, unspecified (principal)
CPT/HCPCS: 36415; 80048; 83735

== ENCOUNTER 2024-03-11 10:04 | Outpatient (RCR) | payer BC, SELFPAY | END 2024-03-11 23:59 | disposition home or self-care (01) | LOC: CRHB 10:04 | PROVIDERS: ATTENDING PHYSICIAN Internal Medicine Interventional Cardiology | DX: I25.10 Atherosclerotic heart disease of native coronary artery without angina pectoris; Z95.5 Presence of coronary angioplasty implant and graft; I21.01 ST elevation (STEMI) myocardial infarction involving left main coronary artery | CPT/HCPCS: G0422; G0423 ==

== ENCOUNTER → 2024-04-11 10:20 | Outpatient (REF) | payer BC, SELFPAY ==
[2024-04-11 11:52] LABS: AST (SGOT) 22 U/L (17-59); Albumin 4.5 g/dl (3.5-5.0); Blood Urea Nitrogen 17 mg/dl (9-20); Calcium 10.2 mg/dl (8.4-10.2); Carbon Dioxide 27 mmol/L (22-30); Chloride 102 mmol/L (98-107); Glucose 99 mg/dl (70-99); Total Bilirubin 0.7 mg/dl (0.2-1.3); Total Cholesterol 90 mg/dl (50-199); Total Protein 7.1 g/dl (6.3-8.2); Triglyceride 96 mg/dl (10-149); Very Low Density Lipoprotein 19 mg/dl (0-30); eGFR > 60.00
[2024-04-11 12:04] LABS: ALT (SGPT) 23 U/L (0-50); Alkaline Phosphatase 121 U/L (38-126); HDL Cholesterol 42 mg/dl; LDL Cholesterol, Calculated 29 mg/dl; Potassium 5.1 mmol/L (3.5-5.1); Sodium 139 mmol/L (135-145)
== END ==
LOC: REG 10:20
PROVIDERS: ATTENDING PHYSICIAN Physician Assistant; FAMILY PHYSICIAN Internal Medicine
DX: I25.10 Atherosclerotic heart disease of native coronary artery without angina pectoris (principal)
CPT/HCPCS: 36415; 80053; 80061

== ENCOUNTER 2024-04-12 11:32 | Outpatient (RCR) | payer BC, SELFPAY | END 2024-04-12 23:59 | disposition home or self-care (01) | LOC: CRHB 11:32 | PROVIDERS: ATTENDING PHYSICIAN Internal Medicine Interventional Cardiology | DX: I21.01 ST elevation (STEMI) myocardial infarction involving left main coronary artery (principal); Z95.5 Presence of coronary angioplasty implant and graft; I25.10 Atherosclerotic heart disease of native coronary artery without angina pectoris | CPT/HCPCS: G0422; G0423 ==

== ENCOUNTER 2024-05-10 07:00 | Outpatient (RCR) | payer BC, SELFPAY | END 2024-05-10 23:59 | disposition home or self-care (01) | LOC: CRHB 07:00 | PROVIDERS: ATTENDING PHYSICIAN Internal Medicine Interventional Cardiology | DX: I25.10 Atherosclerotic heart disease of native coronary artery without angina pectoris (principal); Z95.5 Presence of coronary angioplasty implant and graft; I25.2 Old myocardial infarction | CPT/HCPCS: G0422; G0423 ==

== ENCOUNTER 2024-05-20 14:51 | Outpatient (RCR) | payer BC, SELFPAY | END 2024-05-20 23:59 | disposition home or self-care (01) | LOC: CRHB 14:51 | PROVIDERS: ATTENDING PHYSICIAN Internal Medicine Interventional Cardiology | DX: I25.10 Atherosclerotic heart disease of native coronary artery without angina pectoris (principal); I21.01 ST elevation (STEMI) myocardial infarction involving left main coronary artery; Z95.5 Presence of coronary angioplasty implant and graft | CPT/HCPCS: 93797; 93798; G0422; G0423 ==